=== PATIENT | female | born 1980 | race Caucasian/White ===

== ENCOUNTER 2017-03-28 21:15 | Emergency (ER) | payer OTHER ==
[~2017-03-28 21:15] MED LIST: ADDERALL10 MG PO; PREDNISONE 20MG20 MG PO; TYLENOL WITH C1 EACH PO
[2017-03-28 21:33] VITALS: BP 132/86
--- NOTE | 2017-03-28 22:25 | ED ANKLE/FOOT INJURY COMPLAINT ---
History of Present Illness General Chief Complaint: Foot or Ankle Injury Stated Complaint: "? RT ANKLE INJURY S/P FALL -LOC" Source: patient, old records Exam Limitations: no limitations Vital Signs & Intake/Output Vital Signs & Intake/Output Vital Signs Date Time Temp Pulse Resp B/P B/P Pulse O2 O2 Flow FiO2 Mean Ox Delivery Rate 03/283 98.0 81 22 132/86 98 Allergies Coded Allergies: NO KNOWN ALLERGIES (02/28/11) Reconcile Medications DEXTROAMPHETAMINE/AMPHETAMINE (Adderall 10 MG Tablet) 10 MG TABLET 1 TAB PO TID ADD (Reported) Hydrocodone/Acetaminophen (Wells 5-325 Tablet) 5 MG-325 MG TABLET 1 TAB PO QHS PRN PAIN Prednisone 20 MG TABLET 3 TAB PO DAILY rash Tylenol With Codeine (Tylenol With Codeine #3 Tablet) 1 EACH TABLET 1 TAB PO Q4-6 PRN PRN PAIN Triage Note: PER PT TWISTED RLE REMAINS SWOLLEN AND ECCHYMOTIC. DENIES ANY CHANCE OF ICE, ELEVATING AND OTC WITH MEDS IBUPROFEN WITHOUT EFFECT Triage Nurses Notes Reviewed? yes Duration: day(s): (3), constant Timing: recent history Severity: moderate Severity Numbers: 6 Pain/Injury Location: Right: Ankle. Method of Injury: twisted No Modifying Factors: none Associated Symptoms: none : No Patient currently breastfeeds: No HPI: 36-year-old female presents to ER for evaluation bleeding of persistent right ankle pain for the past 3 days after she twisted her foot while attempting to catch her dog. She has a previous history of a fracture 1 year ago to her right foot and states this feels similar. She's been taking Motrin and her Vicodin with improvement however ran out. Swelling persists. She denies any hip back knee or leg pain otherwise no other injury no modifying factors or associated symptoms. She is able to move her ankle however with pain. She is able to bear weight however with pain (DEMETRIO GARCIA,PRANAV) Past History Travel History Traveled to [place] past 21 day No Medical History Any Pertinent Medical History? see below for history Neurological: NONE EENT: NONE Cardiovascular: NONE Respiratory: NONE Gastrointestinal: NONE Hepatic: NONE Renal: NONE Musculoskeletal: NONE Psychiatric: anxiety, ADHD Endocrine: NONE Blood Disorders: NONE Cancer(s): NONE Surgical History Surgical History: non-contributory Psychosocial History What is your primary language Tanzanian Tobacco Use: Current Daily Use Daily Tobacco Use Amount/Type: => 5 Cigarettes daily Family History Hx Contributory? No (PRANAV BRUCE) Review of Systems Review of Systems Constitutional: Reports: see HPI. All Other Systems: Reviewed and Negative Comments Review of systems: See HPI, All other systems negative. Constitutional, no chills no fever, no malaise HEENT: No visual changes no sore throat no congestion, Cardiovascular: No chest pain , no palpitation Skin: no rashes, no change in skin Respiratory: No dyspnea no cough no sputum GI: No nausea no vomiting, Muscle skeletal: joint pain, no joint swelling, no back pain, no neck pain, Neurologic: No numbness , no headache Psych: No stress Heme/endocrine: No bruising Immunology: No lymphadenopathy (PRANAV BRUCE) Physical Exam Physical Exam General Appearance: well developed/nourished, no apparent distress, alert, awake Leg/Knee/Thigh Left: normal range of motion, normal inspection Comments: Well-developed well-nourished patient in no apparent distress. HEENT: Atraumatic, extraocular motion intact Neck: Supple, FROM Back: FROM Cardiovascular: Regular rate and rhythms no murmurs rubs or gallops, Respiratory: Chest nontender.There were no bony deformities, no asymmetry. No respiratory distress. Patient speaking in full complete sentences. Breath sounds clear to auscultation bilaterally: NO W/R/R Upper Extremities: full range of motion Hip/Pelvis: Atraumatic/Stable. FROM. Knee: Atraumatic/stable. FROM. No joint swelling, no effusion. No laxity. . No pain with ROM Leg: Atraumatic. No proximal tib-fib tenderness Nontender. No edema, 5 out of 5 strength in the lower extremity, normal dorsiflexion of great toe bilaterally, gross sensation is intact, patellar tendon reflex 2+ bilaterally. Ankle/Foot: Ankle with moderate tenderness laterally over the lateral ligaments. No bony tenderness. No medial tenderness. Range of motion is near full but somewhat limited due to pain. No instability is noted. Skin is intact, moderate swelling and ecchymosis laterally and medially or fifth metatarsal tenderness. Able to move all toes. Palpable and intact achilles tendon. There is no proximal tib/fib tenderness Pulses: Normal/equal DP/PT pulses bilaterally. Brisk cap refill Neuro: awake, alert, and oriented to person, place and time. There were no obvious focal neurologic abnormalities. Skin: Warm & dry;No appreciable rash on exposed skin Psych: Mood affect normal, normal memory normal judgment. (PRANAV BRUCE) Progress Differential Diagnosis: fracture, dislocation, sprain, contusion, compartmental syndrome Plan of Care: Orders Procedure Date/time Status Durable Medical Equipment 03/28 2301 Active URINE 03/28 2135 Complete Laboratory Tests 03/28/172157: Urine Test NEGATIVE I discussed with the patient at length all of their results. I had an extensive conversation regarding need for close follow up with their primary care physician this week as well as return precautions. I answered all of their questions, they feel comfortable with the plan and follow-up care. Crutches Octavio wrap applied (PRANAV BRUCE) Diagnostic Imaging: Viewed by Me: Radiology Read. Discussed w/RAD: Radiology Read. Radiology Impression: PATIENT: EULALIO BERNARD PRESENT AGE: 36 PATIENT ACCOUNT NO: [id number] : 78 LOCATION: [facility] ORDERING PHYSICIAN: PRANAV GARCIA SERVICE DATE: 03/28/17 EXAM TYPE: RAD - XRY-ANKLE 3 OR MORE VIEWS R; XRY-FOOT COMPLETE, R EXAMINATION: RIGHT ANKLE AND RIGHT FOOT. CLINICAL INFORMATION: Fall. Right ankle and foot pain. COMPARISON: None TECHNIQUE: 3 views right foot and 3 views right ankle. FINDINGS : RIGHT ANKLE: There is a small calcaneal heel spur. The ankle mortise and subtalar joints are normal. There is no visible acute fracture or dislocation seen. There is mild lateral malleolar soft tissue swelling suggestive of ligamentous injury. RIGHT FOOT: There is no visible acute fracture or dislocation seen. The soft tissues are normal. IMPRESSION: Mild soft tissue swelling lateral malleolus suggestive of ligamentous injury. There is no underlying fracture or dislocation seen. A small calcaneal heel spur is seen. Unremarkable right foot exam. DICTATED BY: JUAN CARLOS HOPKINS MD DATE/TIME DICTATED:2242 DEFLECTOR OPERATOR:MACIE DATE/TIME TRANSCRIBED:03/28/172242 CONFIDENTIAL, DO NOT COPY WITHOUT APPROPRIATE AUTHORIZATION. <Electronically signed in Other Vendor System> SIGNED BY: JUAN CARLOS HOPKINS MD 03/28/172249 (PRANAV BRUCE) Departure Departure Time of Disposition: 2300 Disposition: HOME OR SELF CARE Condition: Stable Clinical Impression Primary Impression: Ankle sprain Referrals: MIO LOPEZ,MILAGROS Peterson (PCP/Family) DANA CAIN,DAVID Rolon Additional Instructions: Rest ice Tylenol Motrin for pain during the day Vicodin for pain at nighttime use caution as is a narcotic highly addictive. No driving or drinking alcohol while taking. Crutches as discussed follow-up with orthopedist Dr. CORTEZ if symptoms persist this was sent to [facility] Departure Forms: Customer Survey General Discharge Information Prescriptions: Current Visit Scripts Hydrocodone/Acetaminophen (Wells 5-325 Tablet) 1 TAB PO QHS PRN PAIN #7 TAB (PRANAV BRUCE) PA/ART SUPERVISOR Co-Sign Statement Statement: ED Attending supervision documentation- [] I saw and evaluated the patient. I have also reviewed all the pertinent lab results and diagnostic results. I agree with the findings and the plan of care as documented in the PA's/ART SUPERVISOR's documentation. [X] I have reviewed the ED Record and agree with the PA's/ART SUPERVISOR's documentation. [] Additions or exceptions (if any) to the PAs/ART SUPERVISOR's note and plan are summarized below: [] (ESMER CAIN,ALISIA Peterson)
--- NOTE | 2017-03-28 22:50 | RADIOLOGY REPORT ---
EXAMINATION: RIGHT ANKLE AND RIGHT FOOT. CLINICAL INFORMATION: Fall. Right ankle and foot pain. COMPARISON: None TECHNIQUE: 3 views right foot and 3 views right ankle. FINDINGS: RIGHT ANKLE: There is a small calcaneal heel spur. The ankle mortise and subtalar joints are normal. There is no visible acute fracture or dislocation seen. There is mild lateral malleolar soft tissue swelling suggestive of ligamentous injury. RIGHT FOOT: There is no visible acute fracture or dislocation seen. The soft tissues are normal. IMPRESSION: Mild soft tissue swelling lateral malleolus suggestive of ligamentous injury. There is no underlying fracture or dislocation seen. A small calcaneal heel spur is seen. Unremarkable right foot exam.
[2017-03-28] MEDS ORDERED: NORCO 5-325 TA1 EACH PO (23:02)
== END 2017-03-28 23:13 ==
LOC: ERH 21:15
DX: S93.401A Sprain of unspecified ligament of right ankle, initial encounter (principal); X58.XXXA Exposure to other specified factors, initial encounter; Y92.9 Unspecified place or not applicable; Y93.9 Activity, unspecified
CPT/HCPCS: 73610-RT; 73630-RT; 81025